=== PATIENT | male | born 1970 | race Caucasian/White ===

== ENCOUNTER 2022-08-15 03:47 | Emergency (ER) | payer OTHER ==
[2022-08-15 04:05] VITALS: BP 125/66; PULSE 56; RESP 18; TEMP 97.9; BMI 23.7
[2022-08-15] MEDS ORDERED: ACETAMINOPHEN 500 MG TABLET (FP) PO ONE (04:27)
[2022-08-15] MEDS ORDERED: ACETAMINOPHEN 325 MG TABLET (FP) ONE (04:34)
== END 2022-08-15 06:08 | disposition home or self-care (01) ==
LOC: JER 03:47
DX: S63.501A Unspecified sprain of right wrist, initial encounter (principal); M79.631 Pain in right forearm; R42 Dizziness and giddiness; M21.40 Flat foot [pes planus] (acquired), unspecified foot; X00.0XXA Exposure to flames in uncontrolled fire in building or structure, initial encounter; W10.9XXA Fall (on) (from) unspecified stairs and steps, initial encounter; Y93.89 Activity, other specified; Y92.038 Other place in apartment as the place of occurrence of the external cause
CPT/HCPCS: 99283-25

== ENCOUNTER 2023-02-09 07:16 | Emergency (ER) | payer OTHER ==
[2023-02-09 07:44] VITALS: BP 129/62; PULSE 68; RESP 16; TEMP 97.6; BMI 23.1
[2023-02-09] MEDS ORDERED: LIDOCAINE 5% TOPICAL PATCH TP ONE (08:05)
[2023-02-09] MEDS ORDERED: IBUPROFEN 400 MG TABLET (FP) PO ONE (08:05)
[2023-02-09] MEDS ORDERED: LIDOCAINE PATCH REMOVAL MC ONE (22:00)
== END 2023-02-09 08:58 | disposition home or self-care (01) ==
LOC: JER 07:16
DX: S86.212A Strain of muscle(s) and tendon(s) of anterior muscle group at lower leg level, left leg, initial encounter (principal); M79.662 Pain in left lower leg; X50.9XXA Other and unspecified overexertion or strenuous movements or postures, initial encounter; Y93.39 Activity, other involving climbing, rappelling and jumping off; Y99.0 Civilian activity done for income or pay
CPT/HCPCS: 99283-25